=== PATIENT | female | born 1955 | race Caucasian/White ===

== ENCOUNTER 2016-03-12 10:30 | Emergency (ER) | payer MEDICAID ==
[2016-03-12] MEDS ORDERED: SODIUM CHLORIDE 0.9% 1,000 ML ONE (13:49)
[2016-03-12] MEDS ORDERED: KAYEXOLATE 15 GM/60 ML BTL ONE ×3 (15:32→15:47)
[2016-03-12] MEDS ORDERED: DEXTROSE 50% 50 ML ONE (15:33)
== END 2016-03-12 16:07 | disposition home or self-care (01) ==
LOC: ER 10:30
DX: E11.649 Type 2 diabetes mellitus with hypoglycemia without coma (principal); Z79.4 Long term (current) use of insulin; E87.5 Hyperkalemia; S39.012A Strain of muscle, fascia and tendon of lower back, initial encounter
CPT/HCPCS: 36415; 74176; 80053; 81003; 83605; 85025; 87040; 96361; 96374